=== PATIENT | male | born 1985 | race Caucasian/White ===

== ENCOUNTER 2018-09-28 05:35 | Day surgery (SDC) | payer OTHER ==
[~2018-09-28] VITALS: Ht 175.3 cm; Wt 72.2 kg
--- NOTE | ~2018-09-28 | O ---
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 POSTOPERATIVE DIAGNOSIS: Tumor of left superior orbit. PROCEDURE: Left transfrontal orbitotomy. SURGEON: Jose Macias MD and Jj Marx MD ANESTHESIA: General. COMPLICATIONS: None. SPECIMEN: To pathology. INDICATIONS FOR SURGERY: This pleasant 33-year-old gentleman had a vascularized mass in his left superior orbit that is eroding into the bone of his left frontal sinus. 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 He presents today for a left orbitotomy in order to remove the lesion and to determine its underlying histopathologic nature. Informed consent was obtained to include, but not limited to, the potential risk for loss of vision, bleeding, infection, failure to improve the problem, the potential need for further surgery or treatment. This lesion is thought to be independent of his brain lesion. DESCRIPTION OF PROCEDURE: The patient was taken to the operating room where general anesthesia was administered. The left superior orbit was then anesthetized with Xylocaine with epinephrine mixed with equal parts of 0.75% Marcaine with Wydase. A left upper lid crease incision was then outlined with a fine tip skin marking pen. The incision was then made with a Concepcion scissor. Hemostasis was achieved throughout the case with diligent use of both bipolar and monopolar cautery. The dissection was then carried around the lesion 360 degrees taking the dissection posteriorly. The lesion was densely vascular and did look roughly like a cavernous hemangioma. The dissection medially was relatively complex as there were dense adhesions of the lesion to the medial periosteum. These were delicately isolated and then dissected free from the surface of the lesion rather than the periosteum. [facility] [address] [place] [address] OPERATIVE REPORT Name: EDUARDO JIMENEZ Keli Room #: 150-3 [facility]#: [id number] Admission: 09/28/18 ������������������ Attend Phys: Jose Macias MD Discharge: ������������������ Date of : [birth year] Report #: [id number] The most challenging part of the dissection was posteriorly. The superior ophthalmic vein appeared to feed directly from the lesion. It was isolated off of the lesion and freed with careful dissection off of the lesion and then a bipolar cautery to the stump of the feeding portion of the vasculature. The lesion was removed in one piece. Gentle bleeding ensued following the final removal of the lesion. Pressure was placed on the orbit superiorly as the bleeding appeared to be venous in nature. There were 2 other sites of mild bleeding that were cauterized. Most of the hemostasis, however, was achieved with gentle pressure. The wound was reinspected, which showed the dilated drainage vessel from the lesion going back to the superior ophthalmic vein. The wound was subsequently closed with 6-0 plain gut sutures and dressed with erythromycin ophthalmic ointment. The patient's head was elevated immediately following the surgery and ice ready for him in the recovery room. He tolerated the procedure well with no anesthetic or operative complications being noted. ��������������������������������������������� ���������������������������������������� By: ��������������������������������������������� 1754 04 Jose Macias MD /nt
[~2018-09-28 05:35] MED LIST: CLARITIN10 MG PO; ZYRTEC10 M5 PO
[2018-09-28 15:38] VITALS: BP 122/74
--- NOTE | 2018-09-30 15:05 | PATH ---
[facility] [address] [place] [address] PATHOLOGY RPT PROCEDURE Name: EDUARDO JIMENEZ Room #: 150-3 [facility] M..#: [id number] ������������������ Admission: 09/28/18 ������������������ Date of : 85 Discharge: Report #: [id number] Path Case #: [id number] [facility] Accession Number: [id number] . 01 Material submitted: . orbit - LEFT ORBITAL MASS. Modifiers: left . 01 Clinical history: . Orbital mass left . 02 Diagnosis: Soft tissue, left orbital mass, orbitotomy: - Consistent with a cavernous hemangioma. - Scattered lymphoid aggregates. - Negative for malignancy. (IUV:pit 09/30/2018) QTP/09/30/2018 . 02 Comment: Examination shows vascular spaces filled with lakes of blood lined by a thin endothelial lining. Nuclear atypia, mitotic figures, or necrosis are not identified within the sample. Scattered amongst the vascular/venous channels are a few lymphoid aggregates. 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 (IUV:pit 09/30/2018) . 02 Electronically signed: . Renuka Zuñiga MD, Pathologist NPI- [id number] . 01 Gross description: . Received in formalin labeled "Eduardo Jimenez, left orbital mass," is a C-shaped segment of dark trent-brown soft tissue measuring 2.2 x 0.7 x 0.6 cm in greatest dimensions. The specimen is inked black. Serial sectioning reveals firm to porous, trent-brown cut surfaces. Headwaiter/Headwaitress sections are submitted in cassette A1. (DAC; 09/29/2018) XDC/XDC . 02 Pathologist provided ICD-10: D18.09 . 02 CPT . 421125 Specimen Comment: A courtesy copy of this report has been sent to Specimen Comment: [phone], . Specimen Comment: Report sent to / [place] [address] PATHOLOGY RPT PROCEDURE Name: EDUARDO JIMENEZ Room #: 150-3 [facility] M.R.#: [id number] ������������������ Admission: 09/28/18 ������������������ Date of : 85 Discharge: Report #: [id number] Path Case #: [id number] Performed at: 01 [facility] [place] [address], [place] [id number] MD Baron Kasper MD Phone: [phone] Performed at: [address] [id number] MD Renuka Zuñiga MD Phone: [phone]
== END 2018-09-28 19:15 | disposition home or self-care (01) ==
LOC: TBA 05:35 → OR 05:35 → TBA 05:36 → OR 10:26
DX: D18.09 Hemangioma of other sites (principal); H05.89 Other disorders of orbit; Z87.891 Personal history of nicotine dependence; Z98.890 Other specified postprocedural states; Z79.899 Other long term (current) drug therapy
CPT/HCPCS: 50010; 50101; 50386; 50398; 51636; 56531; 62110; 62900; 70005